=== PATIENT | female | born 1990 | race African-American/Black ===

== ENCOUNTER 2017-07-28 16:47 | Emergency (ER) | payer MEDICAID, OTHER ==
[~2017-07-28 16:47] MED LIST: BUPR150T3 PO; NOVO7030P2 SQ; RISP1 PO
[2017-07-28 17:46] VITALS: BP 157/93; PULSE 106; RESP 18; TEMP 97.3; O2SAT 98
--- NOTE | 2017-07-28 20:48 | PD ---
HPI Chief Complaint: Skin Problem Time Seen by Provider: 20:39 Travel History International Travel<30 days: No Contact w/Intl Traveler<30days: No Traveled to known affect area: No History of Present Illness HPI Patient comes emergency department complaining of pruritic/burning rash ongoing for approximately a week. Patient is started in 1 spot on her back since spread to multiple other spots. Patient denies doing anything for this. Denies anything making it better. It is progressively getting worse. Denies any fevers or weight loss. Denies being around anyone else with similar. Denies any fevers. Denies any radiation of pain. States it does drain a small amount and crust over. 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13) Patient Takes Glucophage: Yes Diminished Hearing: No Endocrine: Yes (DIABETES) Gastrointestinal Disorders: Yes Genitourinary: No Hypertension: No Immune Disorder: No Implanted Vascular Access Dvce: No Musculoskeletal: No Neurologic: No Psychiatric: Yes (schizoeffective 2004) Reproductive: No Respiratory: No Immunizations Current: Yes Migraines: No Myocardial Infarction: No Radiation Therapy: No Schizophrenia: Yes Seizures: No Sickle Cell Disease: No Sleep Apnea: No Thyroid Disease: No Ulcer: No Tetanus Vaccination: > 5 Years PNEUMOCCOCAL Vaccine (Year): 2009 ?: Unknown Menopausal: No : 1 Para: 0 Miscarriage: 0 : 0 Ectopic : No Ovarian Cysts: No Tubal Ligation: No Past Surgical History Appendectomy: No Section: No Cholecystectomy: No Ear Surgery: No Hysterectomy: No Other Surgery: No Family History Family Hypercholesterolemia: Yes Social History Alcohol Use: No Tobacco Use: No Substance Use: No Allergies-Medications (Allergen,Severity, Reaction): Coded Allergies: Sulfa (Sulfonamide Antibiotics) (Unverified Allergy, Severe, SWELLING, 07/28) house dust (Unverified Allergy, Severe, "HIVES", 07/28/17) trimethoprim (Unverified Allergy, Intermediate, SWELLING VAGINA, 07/28/17) grass pollen (Unverified Allergy, Mild, 07/28/17) Uncoded Allergies: LYE (Allergy, Mild, 03/13/08) Reported Meds & Prescriptions Reported Meds & Active Scripts Active Bactroban Topical (Mupirocin) 22 Gm Cream 1 Applic TOPICAL TID Clindamycin (Clindamycin HCl) 150 Mg Cap 2 Cap PO Q6H 10 Days Risperdal (Risperidone) 1 Mg Tab 1 Mg PO DIRECTED 1 in a.m. 1 at bedtime Bupropion Hcl Xl (Bupropion HCl) 150 Mg Tab 150 Mg PO DAILY Reported Novolin 70/30 (Insulin Human Isoph/Insulin Regular) 100 Units/Ml Inj 0 SQ DIRECTED Sliding Scale As Directed. Review of Systems Except as stated in HPI: all other systems reviewed are Neg Physical Exam Narrative GENERAL: Well-developed, overly nourished, in no acute distress, and non-ill appearing. SKIN: Multiple small skin lesions with yellow crusting mild erythematous surrounding noted on posterior thorax. Rash appears consistent with impetigo. There is no crepitus, fluctuation, induration, or drainage. HEAD: Atraumatic. Normocephalic. EYES: Pupils equal and round. EOMI. No scleral icterus. No injection or drainage. ENT: No nasal bleeding or discharge. Mucous membranes pink and moist. NECK: Trachea midline. Supple. No nuclear rigidity. RESPIRATORY: No accessory muscle use. No respiratory distress. MUSCULOSKELETAL: No obvious deformities. No clubbing. No cyanosis. No edema. Full range of motion. NEUROLOGICAL: Awake and alert. No obvious cranial nerve deficits. Motor grossly within normal limits. Normal speech. PSYCHIATRIC: Appropriate mood and affect; insight and judgment normal. Data Data Last Documented VS Vital Signs Date Time Temp Pulse Resp B/P (MAP) Pulse Ox O2 Delivery O2 Flow Rate FiO2 07/28/17 17:46 97.3 106 18 157/93 (114) 98 Orders Orders Ed Discharge Order (07/28/17 20:50) MDM Medical Decision Making Medical Screen Exam Complete: Yes Emergency Medical Condition: Yes Differential Diagnosis Abscess, cellulitis, impetigo, folliculitis, gangrene Narrative Course The patient has impetigo. There is no evidence of necrotizing fasciitis/ [place] at this time, pain is proportional and no crepitus is noted. There is no evidence of abscess as well at this time. The patient will be discharged on antibiotics. The patient was given signs and symptoms warnings for worsening infection, such as spreading of redness, increasing pain, and/or swelling, associated heat, or fever and instructed to return immediately if these signs or symptoms worsen. The patient is to follow up with physician for recheck. Sooner if worsens or as needed. The patient agrees with plan. Patient in no obvious distress upon re-evaluation. Patient was asked if they wanted to speak to my attending, which the patient did not wish to do at this time. Any questions/concerns in reference to patient diagnosis/condition discussed and clarified prior to patient's discharge. Reinforced sheer importance of close follow up with patient's primary physician or primary care clinic. Instructed patient to return to ED immediately, if symptoms return/ worsen. Patient showed understanding of above instructions. Further instructions and recommendations were detailed in discharge paperwork. Patient ambulated without difficulty out of ED at discharge. Diagnosis Primary Impression: Impetigo Patient Instructions: General Instructions, Impetigo (ED) Additional Instructions: Follow-up with your primary care physician this week for reevaluation. Take all medication as prescribed. Wash hands frequently anytime touching affected areas to prevent further spreading of the rash. Return to the emergency department if symptoms get worse. Med/Other Pt SpecificInfo: Prescription(s) given Scripts Mupirocin Topical (Bactroban Topical) 22 Gm Cream 1 APPLIC TOPICAL TID for Mgmt Bacterial Infection, #1 TUBE 0 Refills Prov: Mary Jo Shay MD 07/28/17 Clindamycin (Clindamycin) 150 Mg Cap 2 CAP PO Q6H for Infection for 10 Days, #80 CAP 0 Refills Prov: Mary Jo Shay MD 07/28/17 Disposition: 01 DISCHARGE HOME Condition: Stable Zachariah Coates Jul 28, 2017 20:48
[2017-07-28] MEDS ORDERED: CLIN150C14 PO (20:49)
[2017-07-28] MEDS ORDERED: MUPI2%T TOPICAL (20:49)
== END 2017-07-28 20:55 | disposition home or self-care (01) ==
LOC: NEPK 16:47
DX: L01.00 Impetigo, unspecified (principal); E11.9 Type 2 diabetes mellitus without complications; Z79.4 Long term (current) use of insulin
CPT/HCPCS: 99283

== ENCOUNTER 2017-08-25 15:33 | Emergency (ER) | payer OTHER ==
[~2017-08-25] VITALS: Ht 167.6 cm; Wt 90.0 kg
[~2017-08-25 15:33] MED LIST changes: +CLIN150C14 PO; +MUPI2%T TOPICAL
[2017-08-25 15:45] VITALS: BP 167/105; PULSE 124; RESP 20; TEMP 98.4; O2SAT 99
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
[2017-08-25 16:18] VITALS: BP 132/87; PULSE 117; RESP 20; O2SAT 99
[2017-08-25] MEDS ORDERED: ERGO2000 PO (16:21)
[2017-08-25] MEDS ORDERED: METHOCARBAMOL 500 MG TAB PO ONE (17:00)
[2017-08-25] MEDS ORDERED: IBUPROFEN 800 MG TAB PO ONE (17:00)
[2017-08-25] MEDS ORDERED: IBUP1TAB7 PO (17:02)
[2017-08-25] MEDS ORDERED: ROBA500T PO (17:02)
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
[2017-08-25 18:02] VITALS: PULSE 99
== END 2017-08-25 18:03 | disposition home or self-care (01) ==
LOC: NEPK 15:33
DX: M54.6 Pain in thoracic spine (principal); M54.2 Cervicalgia; F31.9 Bipolar disorder, unspecified; F41.9 Anxiety disorder, unspecified; F20.9 Schizophrenia, unspecified; E10.9 Type 1 diabetes mellitus without complications; V49.40XA Driver injured in collision with unspecified motor vehicles in traffic accident, initial encounter; Z79.4 Long term (current) use of insulin
CPT/HCPCS: 72050; 72072; 99283; L0150